=== PATIENT | male | born 1955 | race Caucasian/White ===

== ENCOUNTER → 2016-07-18 | Outpatient (CLI) | payer OTHER ==
[~2016-07-18] MED LIST: ASCO500T87 PO; BENZ200C59 PO; GUAISYP4 PO; OMEG10007 PO; PHEN1POW90 PO; VNTHFA/IN INH
== END | disposition home or self-care (01) ==
LOC: C.LABSPEC 16:53
PROVIDERS: ATTEND Hospitalist
DX: H60.91 Unspecified otitis externa, right ear (principal)

== ENCOUNTER 2016-10-01 08:03 | Emergency (ER) | payer OTHER ==
[~2016-10-01] VITALS: Ht 182.9 cm; Wt 100.8 kg
[~2016-10-01 08:03] MED LIST changes: +BENZ-57 PO; -BENZ200C59 PO
[2016-10-01 08:05] VITALS: PULSE 74; TEMP 37; O2SAT 95; Ht 182.9 cm; Wt 100.8 kg
[2016-10-01] MEDS ORDERED: SODIUM CHLORIDE 0.9% 1000ML 1,000 ML IV STA (08:21)
[2016-10-01] MEDS ORDERED: ONDANSETRON INJ 2 MG/ML 2 ML VIAL IV STA (08:21)
[2016-10-01] MEDS ORDERED: MoRPHine SULFATE 10 MG/ML CARP/VIAL IV STA (08:21)
[2016-10-01 08:34] LABS: BASO % 0.2 %; BASO ABS # 0.01 K/uL (0-0.2); COMPLETE YES; EOS % 2.9 %; HEMATOCRIT 42.2 % (42-52); IG% 0.2 %; LYMPH % 25.2 %; LYMPH ABS # 1.13 K/uL (1.2-3.4); MEAN CELL VOLUME 91.7 fL (80-100); MEAN CORPUSCULAR HGB CONC 34.8 g/dl (32-36); MEAN PLATELET VOLUME 8.9 fL (7.4-10.4); MONO % 10.7 %; NEUT % 60.8 %; PLATELET COUNT 255 K/uL (130-400); WHITE BLOOD COUNT 4.49 K/uL (4.8-10.8)
[2016-10-01 08:51] LABS: BUN/CREATININE RATIO 14.2 (10-20); CALCIUM 9.3 mg/dl (8.5-10.1); CREATININE 0.99 mg/dl (0.60-1.40)
--- NOTE | 2016-10-01 09:20 | DIAGNOSTIC IMAGING REPORT ---
ABDOMEN AND PELVIS CT WITHOUT CONTRAST CT DOSE: 1383.94 mGy.cm HISTORY: Pain acute L mid quad rad into testicles, +N/V TECHNIQUE: Multiaxial CT images of the abdomen and pelvis were performed without the use of intravenous and oral contrast according to the standard department stone protocol. COMPARISON STUDY: 03/21/2013. FINDINGS: Left lung base is clear. Postoperative changes in the right hemithorax are unchanged. Cardiac silhouette is primarily right-sided. Liver spleen and pancreas are unremarkable. There is a component of fatty infiltration of the pancreas. There is mild fullness left renal collecting system is compared to the right. It is also somewhat full compared to the prior CT exam. Left ureter is slightly distended. The distention extends throughout the entire length the left ureter. There is a punctate 1.5 mm calcification posterior central aspect of the bladder. This may represent a recently passed calculus. Bowel pattern is remarkable for a component of chronic sigmoid diverticulosis. There is no evidence for acute diverticulitis. IMPRESSION: 1. Mild fullness of the left upper renal collecting system and left ureter. 2. This appears to be secondary to a recently passed calculus which is in the posterior dependent aspect of the bladder. 3. Nonobstructive bowel pattern. 4. Chronic sigmoid diverticulosis Electronically signed by: James Field M.D. 10/01/2016 9:18 AM Dictated Date/Time: 10/01/2016 9:16 AM
[2016-10-01 10:23] VITALS: BP 118/72
--- NOTE | 2016-10-01 16:14 | EMERGENCY ROOM VISIT NOTE ---
ED Visit Note First contact with patient: 08:08 Chief Complaint: Abdominal pain. History of Present Illness: Mr. Alvarado is a 61 year-old white male who is brought into the ED via wheelchair accompanied by his complaining of left mid quadrant abdominal pain. Historically patient reports diverticulitis, umbilical hernia repair and bright red blood per rectum. Patient reports a acute onset of mid left quadrant quadrant abdominal pain that started approximately 3 hours ago. Since that time the pain has been constant. He rates his discomfort 8/10. The pain is currently described as sharp. The pain is radiating into the left lower quadrant and left testicle. His pain worsens with palpation and ambulation. He has not identified any alleviating factors related to the pain. He has not been able to take any medications for pain prior to arrival at the hospital. Associated with his pain he reports intermittently he's been feeling hot and has been having multiple episodes of bilious vomiting and has been continuously nauseated. Patient denies chills, sweats, skin eruptions, skin color changes, facial/ extremity paresthesias, upper respiratory tract symptoms, shortness of breath, chest pain, right-sided abdominal pain, diarrhea, constipation, rectal bleeding , black/tarry stools, urinary symptoms, hematuria, back/flank pain. Review of Systems: As noted above in history of present illness. All body systems were reviewed and found to be negative as noted above. Past Medical History: As previously noted and (1) Bilateral ankle fractures (2) Colonoscopy (3) Fever (4) Hernia repair (5) Lung removed (6) Right femeral neck fracture (7) Total replacement of hip Current Medications: Patient denies. Allergies to Medications: Patient denies. Social History: Patient is currently employed; he lives with his and feels safe in his home environment; and denies tobacco use. Physical Examination: Vital Signs: Date Time Temp Pulse Resp B/P Pulse Ox O2 Delivery O2 Flow Rate FiO2 10/01/16 10:23 118/72 10/01/16 09:36 123/76 10/01/16 08:05 37.0 74 18 150/97 95 Room Air GENERAL: 61-year-old male in moderate to severe distress due to pain, nontoxic- appearing, afebrile and hemodynamically stable. NEUROLOGICAL: Awake, alert and oriented to person, place and time. Answering questions appropriately and following commands. Good hand eye coordination. SKIN: Warm, dry and pink. No soft tissue eruptions or trauma noted. HEENT: Atraumatic and normocephalic. PERRLA. Sclera white and conjunctiva pink. Oral cavity moist and pink. Pharynx is nonerythematous or edematous. Speech normal. No lymphadenopathy. Trachea midline. No jugular venous distention. BACK: No tenderness over the bony spine. No CVA tenderness. THORAX: Lungs sounds are clear to auscultation and equal bilaterally with symmetrical chest wall. No wheezing, rales or rhonchi. No crepitus, tenderness , subcutaneous air or deformities noted. HEART: Regular rate and rhythm. No gallops, rubs or murmurs are appreciated. ABDOMEN: Flat and soft with moderate left mid quadrant and lower left quadrant tenderness. Positive bowel sounds in all quadrants. No guarding, rigidity or organomegaly. EXTREMITIES: Moves all extremities well on command and with purpose. All distal neurovascular statuses are intact and equal bilaterally. Positive dorsalis pedis and anterior tibialis pulses intact and equal bilaterally. ED Course: Patient is assessed as noted above. Laboratory Testing: Test 10/01/16 08:20 Range/Units White Blood Count 4.49 4.8-10.8 K/uL Red Blood Count 4.60 4.7-6.1 M/uL Hemoglobin 14.7 14.0-18.0 g/dL Hematocrit 42.2 42-52 % Mean Corpuscular Volume 91.7 80-100 fL Mean Corpuscular Hemoglobin 32.0 25-34 pg Mean Corpuscular Hemoglobin Concent 34.8 32-36 g/dl Platelet Count 255 130-400 K/uL Mean Platelet Volume 8.9 7.4-10.4 fL Neutrophils (%) (Auto) 60.8 % Lymphocytes (%) (Auto) 25.2 % Monocytes (%) (Auto) 10.7 % Eosinophils (%) (Auto) 2.9 % Basophils (%) (Auto) 0.2 % Neutrophils # (Auto) 2.73 1.4-6.5 K/uL Lymphocytes # (Auto) 1.13 1.2-3.4 K/uL Monocytes # (Auto) 0.48 0.11-0.59 K/uL Eosinophils # (Auto) 0.13 0-0.5 K/uL Basophils # (Auto) 0.01 0-0.2 K/uL RDW Standard Deviation 43.9 36.4-46.3 fL RDW Coefficient of Variation 13.1 11.5-14.5 % Immature Granulocyte % (Auto) 0.2 % Immature Granulocyte # (Auto) 0.01 0.00-0.02 K/uL Sodium Level 141 136-145 mmol/L Potassium Level 4.0 3.5-5.1 mmol/L Chloride Level 103 98-107 mmol/L Carbon Dioxide Level 29 21-32 mmol/L Anion Gap 9.0 3-11 mmol/L Blood Urea Nitrogen 14 7-18 mg/dl Creatinine 0.99 0.60-1.40 mg/dl Est Creatinine Clear Calc Drug Dose 98.7 ml/min Estimated GFR () 96.2 Estimated GFR (Non- 83.0 BUN/Creatinine Ratio 14.2 10-20 Random Glucose 131 70-99 mg/dl Calcium Level 9.3 8.5-10.1 mg/dl Total Bilirubin 1.2 0.2-1 mg/dl Direct Bilirubin 0.2 0-0.2 mg/dl Aspartate Amino Transf (AST/SGOT) 23 15-37 U/L Alanine Aminotransferase (ALT/SGPT) 26 12-78 U/L Alkaline Phosphatase 166 45-117 U/L Total Protein 8.0 6.4-8.2 gm/dl Albumin 4.2 3.4-5.0 gm/dl Lipase 161 73-393 U/L Noncontrast Abdominal/Pelvic CT: Was reviewed by myself and read by the radiologist and shows mild fullness of the left upper renal collection system and left ureter consistent with recently passed calculus; he calculus was noted in the posterior aspect of the bladder. Also of bowel gas pattern and time chronic sigmoid diverticulitis. Patient was hydrated with normal saline, and he was given 6 mg of morphine IV for pain and 4 mg of Zofran IV for nausea. Patient was reassessed multiple times during his stay in the emergency department. Patient's case was reviewed with Dr. Moulton; we agreed on diagnostic approach , treatment, and his plan. Just prior to discharge patient urinated and passed his calculus. Patient was educated about tonight's findings and instructed on his treatment plan; he verbalizes understanding and agreement with this plan. Clinical Impression: Past passage of urine calculus. Decision-Making: Initially my differential diagnosis I considered pyelonephritis , kidney stone, musculoskeletal disorder, diverticulitis, bowel obstruction, pancreatitis and other causes. Disposition: Patient discharged home in stable condition accompanied by his ; prior to departure he was reassessed and subjectively reported he was pain and symptom-free. Plan: Patient was encouraged to alternate ibuprofen and acetaminophen as needed for pain and his stay well-hydrated. Patient was encouraged to follow-up with urology for calculus testing and specialty care and treatment. Patient was encouraged return ED for worsening/uncontrolled pain, fevers, worsening vomiting or any new/concerning symptoms.
== END 2016-10-01 10:24 | disposition home or self-care (01) ==
LOC: C.EDB 08:04
DX: N23 Unspecified renal colic (principal); Z87.81 Personal history of (healed) traumatic fracture; Z96.649 Presence of unspecified artificial hip joint; Z98.890 Other specified postprocedural states

== ENCOUNTER → 2017-01-01 | Outpatient (CLI) | payer OTHER ==
[~2017-01-01] VITALS: Ht 182.9 cm; Wt 104.1 kg
[2017-01-01 15:24] VITALS: BP 146/97; PULSE 85; Ht 182.9 cm; Wt 104.1 kg
== END | disposition home or self-care (01) ==
LOC: C.NEUR 14:07
PROVIDERS: ATTEND Internal Medicine Pulmonary Disease
DX: G47.30 Sleep apnea, unspecified (principal); G47.00 Insomnia, unspecified; G47.26 Circadian rhythm sleep disorder, shift work type

== ENCOUNTER → 2017-04-03 | Outpatient (CLI) | payer OTHER ==
[2017-04-03 13:04] LABS: BLOOD UREA NITROGEN 14 mg/dl (7-18); BUN/CREATININE RATIO 17.2 (10-20); CREATININE 0.82 mg/dl (0.60-1.40)
== END | disposition home or self-care (01) ==
LOC: C.LABPVFM 09:16
PROVIDERS: ATTEND Podiatrist
DX: M79.672 Pain in left foot (principal); M77.42 Metatarsalgia, left foot